=== PATIENT | female | born 1990 | race Caucasian/White ===

== ENCOUNTER → 2017-04-08 | Outpatient (CLI) | payer BC ==
--- NOTE | 2017-04-08 13:58 | Diagnostic Imaging Report ---
INDICATION: Epigastric pain. 2 views were obtained. Findings: The bowel gas pattern is nonspecific. There are no abnormal abdominal calcifications. The osseous structures are unremarkable. IMPRESSION: Nonspecific bowel gas pattern. Dictated by: Dictated on workstation # [id number]
== END | disposition home or self-care (01) ==
LOC: RAD 10:35
PROVIDERS: ATTEND Nurse Practitioner Family
DX: R10.32 Left lower quadrant pain (principal); R10.2 Pelvic and perineal pain
CPT/HCPCS: 74000

== ENCOUNTER → 2019-01-22 | Outpatient (CLI) | payer BC ==
--- NOTE | 2019-01-22 08:42 | Diagnostic Imaging Report ---
PROCEDURE: MRI lumbar spine. TECHNIQUE: Multiplanar, multisequence MRI of the lumbar spine was performed without contrast. INDICATION: Lower back pain. Left leg pain. COMPARISON: None FINDINGS: For the purposes of this exam, last well-formed disc space is noted to be L5-S1 level. Static alignment is maintained. There is no significant anteroretrolisthesis. There is no evidence of jumped facets. Vertebral body heights are maintained. There is no evidence of acute fracture. Marrow signal is normal throughout. Intervertebral disc heights are well-maintained. Visualized portions of distal cord are unremarkable. Conus terminates at approximately the L1 level. No abnormal intrathecal filling defects are seen. Pre-and paravertebral soft tissue structures are unremarkable. Axial images show no large disc bulge or focal protrusions. There is no significant spinal canal or neuroforaminal stenosis throughout. IMPRESSION: 1. Unremarkable MRI of the lumbar spine. Dictated by: Dictated on workstation # [id number]
== END ==
LOC: RAD 07:57
PROVIDERS: ATTEND Nurse Practitioner
DX: M54.16 Radiculopathy, lumbar region (principal); M22.42 Chondromalacia patellae, left knee
CPT/HCPCS: 72148

== ENCOUNTER 2023-07-19 17:36 | Emergency (ER) | payer OTHER ==
[~2023-07-19] VITALS: Ht 162.5 cm; Wt 121.5 kg
[2023-07-19 18:18] LABS: BASOPHILS % (AUTO) 0 % (0-10); EOSINOPHILS # (AUTO) 0.2 10^3/uL (0.0-0.3); EOSINOPHILS % (AUTO) 2 % (0-10); HEMATOCRIT 40 % (35-52); HEMOGLOBIN 12.8 g/dL (11.5-16.0); LYMPHOCYTES # (AUTO) 3.2 10^3/uL (1.0-4.0); LYMPHOCYTES % (AUTO) 30 % (12-44); MEAN CORPUSCULAR HEMOGLOBIN 28 pg (25-34); MEAN CORPUSCULAR HGB CONC 32 g/dL (32-36); MEAN CORPUSCULAR VOLUME 86 fL (80-99); MEAN PLATELET VOLUME 10.4 fL (9.0-12.2); MONOCYTES # (AUTO) 0.8 10^3/uL (0.0-1.0); MONOCYTES % (AUTO) 8 % (0-12); NEUTROPHILS # (AUTO) 6.4 10^3/uL (1.8-7.8); NEUTROPHILS % (AUTO) 60 % (42-75); PLATELET COUNT 315 10^3/uL (130-400); WHITE BLOOD COUNT 10.7 10^3/uL (4.3-11.0)
--- NOTE | 2023-07-19 18:23 | ED GU-Female ---
General Chief Complaint: OB < 20 WEEKS Stated Complaint: VAG BLEEDING, CRAMPING, 10 WEEKS PREG Nursing Triage Note: PT AMB TO [facility] WITH CC OF ABNORMAL VAG BLEEDING. PT REPORTS THAT SHE IS 10 WEEKS TOMORROW. THIS IS PTS 2ND . Source: patient Exam Limitations: no limitations History of Present Illness Date Seen by Provider: Jul 19, 2023 Time Seen by Provider: 17:26 Initial Comments 32-year-old G2, P1 female presents to the ER with reports of vaginal bleeding. She states that she started spotting around 2 PM, states that within the last hour she has had heavy bleeding. She thinks she passed a clot when she went to the bathroom but is uncertain because the toilet was completely red, she noticed small clots when wiping. She reports mild mid abdominal cramping. Denies vaginal discharge. Denies dysuria. Last menstrual cycle was May 12. She has not yet seen her RO[facility] MECH[facility]IC, she is scheduled to see her next week. Allergies and Home Medications Allergies Coded Allergies: No Known Drug Allergies (Unverified , 07/19/23) Patient Home Medication List Home Medication List Reviewed: Yes Review of Systems Review of Systems Constitutional: see HPI Past Ivrtyzh-Uhdlxh-Kpasmt Hx Patient Social History Tobacco Use?: No Substance use?: No Alcohol Use?: No Physical Exam Vital Signs Vital Signs - First Documented 07/19/23 17:54 Pulse 99 B/P (MAP) 147/76 (99) Pulse Ox 95 O2 Delivery Room Air Capillary Refill : Height, Weight, BMI Height: '" Weight: lbs. oz. kg; 46.00 BMI Method: General Appearance: WD/WN, no apparent distress Neck: supple, normal inspection Cardiovascular: regular rate, rhythm Respiratory: lungs clear, normal breath sounds, no respiratory distress, no accessory muscle use Gastrointestinal: normal bowel sounds, non tender, soft Pelvic: normal external exam, vaginal bleeding Extremities: normal range of motion, normal inspection Neurologic/Psychiatric: alert, normal mood/affect Skin: normal color, warm/dry Progress/Results/Core Measures Suspected Sepsis SIRS Temperature: Pulse: 99 Respiratory Rate: Laboratory Tests 07/19/23 18:09: White Blood Count 10.7 Blood Pressure 147 /76 Mean: 99 Laboratory Tests 07/19/23 18:09: Creatinine 0.91, Platelet Count 315, Total Bilirubin 0.2 Results/Orders Lab Results Laboratory Tests Test 07/19/23 18:09 07/19/23 18:28 Range/Units White Blood Count 10.7 4.3-11.0 10^3/uL Red Blood Count 4.66 3.80-5.11 10^6/uL Hemoglobin 12.8 11.5-16.0 g/dL Hematocrit 40 35-52 % Mean Corpuscular Volume 86 80-99 fL Mean Corpuscular Hemoglobin 28 25-34 pg Mean Corpuscular Hemoglobin Concent 32 32-36 g/dL Red Cell Distribution Width 14.0 10.0-14.5 % Platelet Count 315 130-400 10^3/uL Mean Platelet Volume 10.4 9.0-12.2 fL Immature Granulocyte % (Auto) 0 % Neutrophils (%) (Auto) 60 42-75 % Lymphocytes (%) (Auto) 30 12-44 % Monocytes (%) (Auto) 8 0-12 % Eosinophils (%) (Auto) 2 0-10 % Basophils (%) (Auto) 0 0-10 % Neutrophils # (Auto) 6.4 1.8-7.8 10^3/uL Lymphocytes # (Auto) 3.2 1.0-4.0 10^3/uL Monocytes # (Auto) 0.8 0.0-1.0 10^3/uL Eosinophils # (Auto) 0.2 0.0-0.3 10^3/uL Basophils # (Auto) 0.0 0.0-0.1 10^3/uL Immature Granulocyte # (Auto) 0.0 0.0-0.1 10^3/uL Sodium Level 138 135-145 MMOL/L Potassium Level 4.1 3.6-5.0 MMOL/L Chloride Level 106 98-107 MMOL/L Carbon Dioxide Level 22 21-32 MMOL/L Anion Gap 10 5-14 MMOL/L Blood Urea Nitrogen 11 7-18 MG/DL Creatinine 0.91 0.60-1.30 MG/DL Estimat Glomerular Filtration Rate 87 BUN/Creatinine Ratio 12 Glucose Level 104 70-105 MG/DL Calcium Level 9.0 8.5-10.1 MG/DL Corrected Calcium 9.0 8.5-10.1 MG/DL Total Bilirubin 0.2 0.1-1.0 MG/DL Aspartate Amino Transf (AST/SGOT) 17 5-34 U/L Alanine Aminotransferase (ALT/SGPT) 19 0-55 U/L Alkaline Phosphatase 72 40-136 U/L Total Protein 6.9 6.4-8.2 GM/DL Albumin 4.0 3.2-4.5 GM/DL Human Chorionic Gonadotropin, Quant 3615 H <5 MIU/ML Urine Color ORANGE Urine Clarity CLEAR Urine pH 6.0 5-9 Urine Specific [place] 1.015 L 1.016-1.022 Urine Protein 1+ H NEGATIVE Urine Glucose (UA) NEGATIVE NEGATIVE Urine Ketones NEGATIVE NEGATIVE Urine Nitrite NEGATIVE NEGATIVE Urine Bilirubin NEGATIVE NEGATIVE Urine Urobilinogen 0.2 < = 1.0 MG/DL Urine Leukocyte Esterase NEGATIVE NEGATIVE Urine RBC (Auto) 3+ H NEGATIVE Urine RBC >100 H /HPF Urine WBC NONE /HPF Urine Squamous Epithelial Cells 10-25 H /HPF Urine Crystals NONE /LPF Urine Bacteria TRACE /HPF Urine Casts NONE /LPF Urine Mucus NEGATIVE /LPF Urine Culture Indicated NO My Orders Orders - OLGA GARCIA APRN Cbc And Automated Diff (07/19/23 17:51) Hcg,Quantitative (07/19/23 17:51) Abo Rh Type (07/19/23 17:51) Ed Iv/Invasive Line Start (07/19/23 17:51) Comprehensive Metabolic Panel (07/19/23 17:51) Ua Culture If Indicated (07/19/23 18:23) Urine Bedside (07/19/23 18:23) Us Ob<14 Wks Sngle W/Transvag (07/19/23 19:01) Rho(D) Immune Globulin (Rho(D) Immune Gl (07/19/23 21:45) Medications Given in ED Vital Signs/I&O Capillary Refill : Blood Pressure Mean: 99 Progress Note : Progress Note Patient seen and evaluated, resting comfortably in bed, no acute distress. Based on exam and symptoms, differential diagnosis includes but is not limited to miscarriage, threatened miscarriage, chronic hemorrhage, UTI. Work-up initiated including CBC, CMP, Rh type, hCG, UA. 2143 Labs and imaging reviewed. CBC grossly normal. CMP grossly normal. hCG 3615. Urinalysis shows 3+ RBCs, negative leukocytes, negative nitrates, negative WBCs, 10-25 squamous epithelial cells, trace bacteria. Patient is B negative. Ultrasound shows no evidence of intrauterine or extrauterine gestation. Findings may represent a missed . RhoGAM has been ordered. Pelvic exam was performed, blood clot removed from vaginal canal, bleeding continues. Patient has had a lots of vaginal bleeding and passing blood clots since she has been in the ER. Results discussed with patient. Patient instructed to follow-up with OB next week as scheduled. Discharge instructions and return precautions provided. Diagnostic Imaging Diagonstic Imaging: Ultrasound Plain Films/CT/US/NM/MRI: abdomen, pelvis Comments [facility], [place] NAME: CAL [facility] REC#: [id number] PT STATUS: REG ER : 1990 PHYSICIAN: OLGA GARCIA APRN ADMIT DATE: 07/19/23/ER Signed Date of Exam:07/19/23 US OB<14 WKS SNGLE W/TRANSVAG TECHNIQUE: Live grayscale and color Doppler ultrasound was performed of the pelvis transabdominally and endovaginally. COMPARISON: None Available INDICATION: Vaginal bleeding. FINDINGS: Transabdominal: The uterus and adnexa have a unremarkable transabdominal appearance. Transvaginal images were obtained for additional characterization. Transvaginal: The uterus measures 9.3 x 4.0 x 4.6 cm. The endometrial stripe measures 2.5 cm and has a heterogeneous appearance. No evidence of intrauterine gestation. The right ovary is well visualized measuring 3.3 x 2.5 x 3.4 cm and demonstrating normal color Doppler flow. The left ovary is well-visualized measuring 2.5 x 1.7 x 2.3 cm with normal color Doppler flow. No adnexal masses. No free fluid is seen in the pelvis. IMPRESSION: 1. No sonographic evidence of intrauterine or extrauterine gestation. Findings may represent missed . Recommend continued follow-up with serial beta-hCGs and pelvic ultrasound as indicated. 2. Unremarkable sonographic appearance of the ovaries. Dictated by: Dictated on workstation # [id number] Dict: 07/19/232104 Trans: 07/19/232122 [place] [id number] Interpreted by: STEVEN SAVAGE DO Electronically signed by: STEVEN SAVAGE DO 07/19/232122 Departure Impression Primary Impression: Miscarriage Disposition: 01 HOME, SELF-CARE Condition: Stable Departure-Patient Inst. Decision time for Depature: 21:43 Referrals: NO,LOCAL PHYSICIAN (PCP/Family) Primary Care Physician Patient Instructions: Miscarriage (DC) Add. Discharge Instructions: Take it easy over the next couple of days, pelvic rest until the bleeding subsides. You should expect to have more bleeding and abdominal cramping. Follow-up with your [facility]IC next week as scheduled. Call them on Sunday to let them know about your visit today. Return if you are completely saturating a maxi pad once an hour for several hours, or you develop dizziness, lightheadedness, shortness of air, chest pain, or any other new, concerning, or worsening symptoms. All discharge instructions reviewed with patient and/or family. Voiced understanding. OLGA GARCIA APRN Jul 19, 2023 18:23
[2023-07-19 18:34] LABS: POTASSIUM 4.1 MMOL/L (3.6-5.0)
[2023-07-19 18:36] LABS: TOTAL PROTEIN 6.9 GM/DL (6.4-8.2)
[2023-07-19 18:38] LABS: BILIRUBIN,TOTAL 0.2 MG/DL (0.1-1.0)
[2023-07-19 18:40] LABS: CREATININE SERUM 0.91 MG/DL (0.60-1.30)
[2023-07-19 18:51] LABS: BILIRUBIN,URINE NEGATIVE (NEGATIVE); CLARITY,URINE CLEAR; COLOR,URINE ORANGE; GLUCOSE, URINE (UA) NEGATIVE (NEGATIVE); KETONES,URINE NEGATIVE (NEGATIVE); LEUKOCYTE ESTERASE ,URINE NEGATIVE (NEGATIVE); NITRITE,URINE NEGATIVE (NEGATIVE); PROTEIN,URINE 1+ (NEGATIVE); RBC,URINE >100 /HPF
[2023-07-19 18:52] LABS: BACTERIA,URINE TRACE /HPF
--- NOTE | 2023-07-19 21:18 | Diagnostic Imaging Report ---
TECHNIQUE: Live grayscale and color Doppler ultrasound was performed of the pelvis transabdominally and endovaginally. COMPARISON: None Available INDICATION: Vaginal bleeding. FINDINGS: Transabdominal: The uterus and adnexa have a unremarkable transabdominal appearance. Transvaginal images were obtained for additional characterization. Transvaginal: The uterus measures 9.3 x 4.0 x 4.6 cm. The endometrial stripe measures 2.5 cm and has a heterogeneous appearance. No evidence of intrauterine gestation. The right ovary is well visualized measuring 3.3 x 2.5 x 3.4 cm and demonstrating normal color Doppler flow. The left ovary is well-visualized measuring 2.5 x 1.7 x 2.3 cm with normal color Doppler flow. No adnexal masses. No free fluid is seen in the pelvis. IMPRESSION: 1. No sonographic evidence of intrauterine or extrauterine gestation. Findings may represent missed . Recommend continued follow-up with serial beta-hCGs and pelvic ultrasound as indicated. 2. Unremarkable sonographic appearance of the ovaries. Dictated by: Dictated on workstation # [id number]
[2023-07-19 21:39] VITALS: BP 134/87
[2023-07-19] MEDS: RHO(D) IMMUNE GLOBULIN 300 MCG/2 ML SYRINGE IM/IV ONE ×2 (21:49→21:51)
== END 2023-07-19 21:56 | disposition home or self-care (01) ==
LOC: EDUNIT# 17:36 → ER 17:44
DX: O03.9 Complete or unspecified spontaneous abortion without complication (principal)
CPT/HCPCS: 36415; 76801; 76817; 80053; 81000; 84702; 84703; 85025; 86900; 86901; 96372